=== PATIENT | male | born 1955 | race Caucasian/White ===

== ENCOUNTER 2017-09-08 09:32 | Observation (INO) | payer BC ==
[2017-09-08 10:26] LABS: #Eosinphils 0.3 thou/uL (0.0-0.7); #Lymphocytes 0.9 thou/uL (1.20-3.40); #Monocytes 0.4 thou/uL (0.11-0.59); #Neutrophils 3.9 thou/uL (1.40-6.50); %Basophils 0.5 % (0.0-1.0); %Eosinophils 4.6 % (0.0-10.0); %Lymphocytes 16.7 % (21.0-51.0); %Neutrophils 70.2 % (42.0-75.0); Hemoglobin 13.9 g/dL (14.0-18.0); Mean Corpuscular HGB CONC 33.9 g/dL (32.0-36.0); Mean Corpuscular Hemoglobin 30.3 pg (27.0-31.0); Mean Corpuscular Volume 89.2 fL (78.0-98.0); Mean Platelet Volume 6.4 fL (7.4-10.4); Platelet Count 251 thou/uL (130-400); RBC Distribution Width 12.2 % (11.5-14.5); Red Blood Cell (RBC) Count 4.59 mill/uL (4.70-6.10); White Blood Cell (WBC) Count 5.5 thou/uL (4.8-10.8)
--- NOTE | 2017-09-08 10:35 | RAD ---
PORTABLE CHEST: History: Chest pain, shortness of breath. FINDINGS: Heart size is borderline in size. Mediastinal structures are unremarkable. The lungs are clear of inf iltrates. There are no signs of failure. IMPRESSION: Borderline heart size. POS: [facility]
[2017-09-08 10:51] LABS: ALT (SGPT) 30 U/L (8-55); AST (SGOT) 22 U/L (5-34); Albumin 4.4 g/dL (3.4-4.8); Alkaline Phosphatase 66 U/L (40-150); Anion Gap 9 mmol/L (10-20); BUN (Urea Nitrogen) 10 mg/dL (8.4-25.7); Bilirubin, Total 0.8 mg/dL (0.2-1.2); CK (CPK) 79 U/L (30-200); Calc. Creatinine Clearance 0 mL/min (70-130); Calcium 9.3 mg/dL (7.8-10.44); Carbon Dioxide 28 mmol/L (23-31); Chloride 106 mmol/L (98-107); Estimated GFR-MDRD Greater than 90; Globulin 2.5 g/dL (2.4-3.5); Glucose 100 mg/dL (80-115); Lipase 14 U/L (8-78); Potassium 3.8 mmol/L (3.5-5.1); Protein, Total 6.9 g/dL (5.8-8.1); Sodium 139 mmol/L (136-145)
[2017-09-08 10:55] LABS: CKMB 2.2 ng/mL (0-6.6); Troponin I Less than 0.010 ng/mL (< 0.028)
[2017-09-08] MEDS ORDERED: Sodium Chloride 0.9% 100 ML ONE (15:43)
[2017-09-08] MEDS ORDERED: Acetaminophen 325 MG TAB PO PRN (16:20)
[2017-09-08 17:55] LABS: Troponin I Less than 0.010 ng/mL (< 0.028)
[2017-09-08 18:41] LABS: Free T4 (Free Thyroxine) 1.03 ng/dL (0.70-1.48); Thyroid Stimulating Hormone 2.3426 uIU/mL (0.35-4.94)
[2017-09-08 20:18] LABS: Troponin I Less than 0.010 ng/mL (< 0.028)
[2017-09-08] MEDS ORDERED: Ondansetron HCl/PF 4 MG/2 ML Vial IVP PRN (21:49)
[2017-09-08] MEDS ORDERED: Ondansetron ODT 4 MG TAB SL PRN (21:49)
[2017-09-08] MEDS ORDERED: Sodium Chloride 0.9% 1,000 ML IV SCH (21:49)
[2017-09-08 22:20] VITALS: BMI 29.5
--- NOTE | 2017-09-08 22:28 | HP ---
CHIEF COMPLAINT: Chest pain. HISTORY OF PRESENT ILLNESS: This patient is a 61-year-old male, who reports he has had a history of some chest pain problems over the years. He has seen 3 different cardiologists. Initially, he was a pparently having some PVCs and was evaluated 20 years ago. At that time, he had an ultrasound and wa s told that he had a mitral valve prolapse. Subsequently, he was reevaluated by a second cardiologis t some years later and was specifically told that he did not have a significant mitral valve prolapse issues. In the fall, the patient experienced some further symptoms including some palpitations, and at that time, he presented locally to Dr. Silva. She did a workup on the patient, which he reports w as basically negative. He states that the nurse did call him and tell him that the echo results did show that he had a leaky valve and some enlargement, both of which she felt were largely inconsequent ial. Subsequent to that, the patient was stable for a period of time; 3 months ago, started having m ore symptoms more often. He stated he noticed at work that, when he would walk up a flight of stairs , he would be very short of breath and have some chest discomfort. Over the past week, it became mor e often with less exertion and was particularly bothered when he exerted himself outdoors in the heat at all. Over the last 3 days, it has crescendoed somewhat. States he could not walk outside to his car without getting symptoms, and ultimately, could not even walk around in his own home without hav ing similar symptoms. Last night, the patient had an episode and checked his blood pressure and repo rts it was 150s/90s. He also notes that he has had some ankle edema, which is unusual for him. He s tates that he has been eating quite a lot recently and noted he felt like he had some additional flui d in his abdomen as well. In the last 24 hours, the patient reports that he has been diuresing for s ome reason. He has changed nothing that he is aware of, but voided frequently through the night and throughout the day today. Fairly large amount. On further questioning, the patient reports that he had some aching sensation in his left upper extremity last evening and he also notes that the symptom s seemed to be worse when he is in a hot shower. REVIEW OF SYSTEMS: Notable for a 5-pound weight gain over the past few days, which the patient think s may be attributable to his eating more. He states last night he could not sleep as well, because h is heart felt like it was pounding. He has some right ear hearing deficit, some cough which he relat es to chronic sinus drainage. He does have routine nocturia multiple times, which is longstanding, a nd he also admits to some daytime polyuria recently. Other than those things and the things mentione d in the history of present illness, a 10-system review was negative. PAST MEDICAL HISTORY: Notable for degenerative disk disease of the lumbar spine. Reports he had a s layo fracture in his 20s. He has hypertension and allergic rhinitis. He takes fwrc-jkt-vemvtvs med ications for this, but is fairly certain they do not contain decongestants. He has cataracts and hyp erlipidemia. PAST SURGICAL HISTORY: Notable for lumbar diskectomy and 3-level lumbar fusion. FAMILY HISTORY: The patient was adopted, but has recently found his biological parents. He does not have all the history. He believes his father had cancer. His mother had cancer and states that she had some heart trouble, which he thinks might be "a stroke." SOCIAL HISTORY: The patient is a nonsmoker, nondrinker, nondrug user. He is . His woul d be his surrogate decision maker and he is FULL CODE. ALLERGIES: None. MEDICATIONS: Simvastatin 40 mg every day, quinapril 10 mg every day, aspirin 81 mg daily, omeprazole 40 mg daily. PHYSICAL EXAMINATION: VITAL SIGNS: BP is 120s/80s, pulse 60s. He is afebrile. Respirations are 16. GENERAL APPEARANCE: Age-appropriate male. He is awake, alert, oriented, pleasant, cooperative. He is in no distress. HEENT: PERRL. No OP lesions. NECK: Supple and symmetric without lymphadenopathy. LUNGS: Clear to auscultation bilaterally with no wheezes or rales. HEART: Regular rate and rhythm without murmurs, gallops, or rubs. LUNGS: Clear to auscultation bilaterally with good chest wall expansion, air exchange. ABDOMEN: Soft, nontender, nondistended, positive bowel sounds. No masses, no organomegaly. EXTREMITIES: Warm and dry with 1+ pretibial pitting edema. LABORATORY DATA: White count 5.5, hemoglobin 13.9, platelets 251. D-dimer 0.39. Sodium 139, potass ium 3.8, chloride 106, CO2 is 28, BUN 10, creatinine is 0.75. AST is 22 and ALT is 30. Troponin les s than 0.01 with repeat 0.02. BNP 188.3, lipase 14. Chest x-ray is negative. EKG: Sinus rhythm wi th some PVCs. ASSESSMENT AND PLAN: 1. Chest pain in a patient, who has had a prior workup. He has risk factors including hypertension and hyperlipidemia. He has negative initial troponins and EKG with the exception of frequent PVCs, w hich may be explaining part of his symptomatology. He will be placed in observation on telemetry wit h serial cardiac isoenzymes. We will also check a magnesium level and a TSH with free T4. Giving th e crescendo nature of his symptoms, we will go ahead and ask Dr. Silva to see the patient again as prabhakar reagan. 2. Hypertension. We will continue with his usual home medications including the MILANA inhibitor. 3. Hyperlipidemia. We will continue with his oral dose of simvastatin.
--- NOTE | 2017-09-09 11:06 | PDOC.EVN ---
Event Note - Event Note Event Note: DC SUMMARY #[id number]
--- NOTE | 2017-09-09 11:26 | DIS ---
DATE OF ADMISSION: 09/08/2017 DATE OF DISCHARGE: 09/09/2017 ADMITTING DIAGNOSES: Chest pain, dyspnea on exertion, degenerative disk disease, osteoarthritis, and hypertension. DISCHARGE DIAGNOSES: 1. Chest pain, resolved. 2. Dyspnea on exertion, resolved. 3. History of degenerative disk disease, stable. 4. Hypertension, stable. HOSPITAL COURSE: This is a 61-year-old male, who was admitted with some chest pain and history of palomino ving this issue apparently had a workup done recently with his provider relations specialist, which showed no cardiac evidence of pathology. Patient also had an outpatient stress test done as well. The patient was adm itted to Internal Medicine team, seen by Cardiology during this admission with a nuclear medicine str ess test being done at this point in time. The patient at the point in time of discharge was stable. Denied any nausea, vomiting, diarrhea, constipation, chest pain, fevers, chills, shortness of breat h. Patient was to be discharged. Follow up with PCP and Cardiology within 1-2 weeks. Patient was e ncouraged to also consider discussing possibilities of noncardiac chest pain Pulmonary for example or even GI. DISPOSITION: Home. MEDICATIONS: See MAR. ACTIVITY: As tolerated with assistance as needed. DIET: Low fat, low calorie, high fiber. CONDITION: Stable. PROGNOSIS: Good. FOLLOWUP: With PCP within 1 week, Cardiology within 2-3 weeks. Case and plan discussed with the patient and at length. They understand and agree with this nahun n.
--- NOTE | 2017-09-09 11:41 | NM ---
RADIONUCLIDE STRESS AND REST MYOCARDIAL PERFUSION SCAN WITH CT ATTENUATION CORRECTION AND SPECT IMAGI NG: LEFT VENTRICULAR WALL MOTION EVALUATION AND EJECTION FRACTION: HISTORY: Chest pain. FINDINGS: Jarred protocol used. A test time of 7 minutes and 1 second. There is heterogeneous uptake of radiotracer throughout the left ventricular myocardium. No focal pe rfusion defect or reversibility. QGS analysis of gated SPECT images show no focal wall motion abnorm alities. LHR is 49%. Left ventricular ejection fraction is calculated at 56%. There is some dyskin esis apparent, primarily involving the anterior and lateral wall. IMPRESSION: 1. Probably normal myocardial perfusion scan, showing no reliable evidence of ischemia. 2. Ejection fraction at lower limits of normal with some dyskinetic movement of the anterior and lat eral wall. Cause is not evident. POS: [facility]
[2017-09-09 12:05] VITALS: TEMP 98.3
[2017-09-09 15:37] VITALS: BP 132/77
--- NOTE | 2017-09-09 18:22 | CON ---
DATE OF CONSULTATION: 09/09/2017 CARDIOLOGY CONSULTATION PRIMARY CARE PHYSICIAN: Yolande Zepeda M.D. PRIMARY FERMENTATION SCIENTIST: Cassidy Silva M.D. REFERRING: Jagdish Chavez D.O. REASON FOR CARDIOLOGY CONSULTATION: Chest pain and palpitations. HISTORY OF PRESENT ILLNESS: Mr. Mars is a 61-year-old male with a significant history Lrkco-Ifyjitotw-Ascph symptom with status post ablation in 1997, hypertension and hyperlipidemia and palpitations. The patient has the problem of the palpitation for quite some time, more than 20 years. He saw total of 3 cardiologists and every exam he had showed normal per the patient. He was diagnosed as mitral valve prolapse around the age of 40 and the patient' s CT cardiogram showed normal. The patient had a stress test last year at [facility] ' office which showed normal. The patient's echocardiogram in 12/2016 shows EF of 50-55 and no mitral valve prolapse showed. The patient had a 48 hour event monitor in 02/2017 showed frequent PVCs, but no other arrhythmia or pulses. Since the test, he did not have any chest pain or palpitation; however, he started having heaviness and burning-like sensation to his mediastinal area around 3 months ago, which happens usually in the afternoon. Moreover, around a few weeks ago, he started having more heaviness and burning sensation all day , several times a day with increase in his fatigue when he walks. However, he did not have any shortness of breath, chest pain, heaviness or numbness in the left upper extremities or any other cardiac complaints even if he walks more than 1 mile. Since last week, he started having more frequent of those symptoms with palpitation in his chest. In the morning of 09/08, he has worsening of those symptoms, so he decided to present to the emergency department for the further evaluation and treatment. He already had a [place], treadmill stress test today, which shows probable normal myocardial perfusion with no evidence of ischemia with ejection fraction of 56%. During the treadmill part, the patient walked more than he usually does, he also has palpitation; however, EKG did not show any abnormal rhythm. 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 He walks more than 2 or 3 miles and take stairs to inspect the building. That time, he does not have those symptoms much, however, he does not take much fluid intake during the work time and also he takes antihistamine almost every day for sinus and he stated that his sinus is getting worse lately and he is taking more of the antihistamine medicine more often than before. Since he is admitted at this hospital since yesterday, he did not have any palpitation or heaviness or burning-like sensation in his mediastinal area, shortness of breath, dizziness, lightheadedness, nausea, vomiting or numbness to the left upper extremity or other cardiac complaints. The patient had a stress test today, which is showing probable normal myocardial function test with no evidence of ischemia and the patient had echocardiogram done in 12/2016, which shows EF of 50%-55%, mild LAD, LAE, mild mitral valve regurgitation, mild tricuspid regurgitation and no mitral valve prolapse. The patient had 48 hours event monitor on in 02/2017 for history of palpitation, which shows frequent PVCs, but no arrhythmia at the pauses. PAST MEDICAL HISTORY: 1. Oudtg-Eputnkxpa-Gjehk syndrome with status post ablation in 1997. EKG on the equipment monitor phototypesetting had shown sinus rhythm with frequent PVCs. 2. Hypertension. 3. Hyperlipidemia. 4. GERD. 5. Cataracts without surgery at this moment. PAST SURGICAL HISTORY: 1. Lumbar and thoracic spinal fusion. 2. Septoplasty. 3. Cholecystectomy. 4. Hernia repair. FAMILY HISTORY: He was adopted, but his biological mother has a history of some kind of heart disease, stroke and ovary and breast cancer. SOCIAL HISTORY: The patient lives with his . They have 4 children. First son had a history of murmur as the baby, but resolved while he is grown up. Other 3 children did not have any problem and they live healthy and live well. He denies tobacco, ETOH or illicit drug abuse; however, he had grown up in a house like he has history of secondhand smoking. He used to drink coffee every day, however, he no longer having the caffeine for more than 1-2 years. ALLERGIES: He is allergic to CODEINE, which makes him nauseated. HOME MEDICATIONS: Quinapril 10 mg once a day, simvastatin 40 mg once a day, omeprazole 40 mg once a day and some kind of antihistamine over the counter almost every day. REVIEW OF SYSTEMS: Negative unless mentioned in the HPI. The patient reports patient being active and he denies any shortness of breath, hematuria or blood in the stool or any deformity in the lower extremities. PHYSICAL EXAMINATION: VITAL SIGNS: Blood pressure 132/74, pulse is 63 with sinus rhythm with frequent PVCs, respiratory 18, O2 saturation 97% with room air, temperature 98.3. GENERAL: Well developed and well nourished without any acute distress. HEAD: Normocephalic, atraumatic. EYES: Extraocular muscle movement intact. Wears glasses for reading. ENT AND MOUTH: Oral and nasal mucosa was moist without lesion. NECK: Supple and normal range of motion. LUNGS: Clear to auscultation bilaterally. No wheezing, rales or rhonchi noted. CARDIOVASCULAR: Regular rate and rhythm. No murmur, hives, rub noted. Carotid pulses are present without thrill or bruit noted. There are 2+ pulses in the bilateral lower extremities. No edema noted. ABDOMEN: Soft and nontender or mass to palpate. Bowel sounds are positive. EXTREMITIES: The patient is able to move all extremities. No occult claudication. SKIN: No bruise, lesion or erythema noted. NEUROLOGIC: The patient is alert and oriented x4, nonfocal. LABORATORY DATA: WBC 5.5, hemoglobin 13.9, hematocrit 40.2, platelet 251,000. D-dimer 0.39. Sodium 139, potassium 3.8, BUN 10, creatinine 0.75, calcium 9.3, magnesium 2.1, AST 22, ALT 30, CK-MB 2.2. Troponin less than 0.010 and 0.020. BNP is 188.3, free T4 1.03, TSH 2.3426. The patient's chest x-ray shows borderline heart size. Other than that, no abnormalities. The patient's stress test shows probable normal myocardial perfusion with no evidence of ischemia. ASSESSMENT AND PLAN: 1. Palpitation. The patient's telemetry record and 12-lead EKG at the ER shows the patient having frequent premature ventricular contractions without any other abnormalities at this moment. The patient's event monitor recording in 02/2017 shows frequent premature ventricular contractions with no pauses arrhythmia. The patient's symptoms may be due to the dehydration or frequent intake of the antihistamine. The patient has similar symptoms during the [place], treadmill stress test; however, the EKG during the test did not show any abnormalities. We like to order event monitor for 5 days, which is going to be sent from Dr. Silva' office to monitor his heart ____. Other than that, we like to continue to monitor. 2. History of Gcurp-Zgulrtdzk-Ffbfq syndrome. The patient's equipment monitor phototypesetting shows any symptom of the [place]-Pygjojqeg-Dqctr syndrome at this moment. We would like to continue to monitor on the telemetry. 3. Hypertension. The patient's blood pressure has been stable with current medication. 4. Hyperlipidemia. He is on simvastatin 40 mg once a day. We would like to resume the medication once he is discharged. 5. History of mitral valve prolapse, which the patient was diagnosed at the age of 40. However, last EKG in 12/2016 shows no evidence of mitral valve prolapse. We would like to continue to monitor with serial echocardiograms. Thank you for allowing the Cardiology service to participate in the care of this patient. We would like to follow along with ____ patient care team and make recommendation as appropriate. PURA
--- NOTE | 2017-09-10 07:46 | ADD-CON ---
ADDENDUM DATE OF CONSULTATION: 09/09/2017 DATE OF ADMISSION: 09/08/2017 CARDIOLOGY CONSULT Please refer to the notes already dictated by the nurse practitioner, Richa La. INDICATION FOR CONSULTATION: Increasing palpitations. HISTORY OF PRESENT ILLNESS: This 61-year-old gentleman I followed for just recently. He has been no ticing palpitation on the third termination clerk, he was seen regarding this. He has had workups in the past. He was recently told he had mitral valve prolapse. The last seen termination clerk including papito greenwood and told there is no evidence of mitral valve prolapse. He continued to have PVCs, as notice incre ased frequency of the PVCs especially in this hot weather. He may not be drinking fluids when he is out performing this task in the heat. Otherwise, he has had no significant cardiac issues in the pas t except for the palpitations. He has undergone a stress testing which was unremarkable. Echocardio gram, which also unremarkable. He continues to have the palpitations. At this time, he complained o f some chest discomfort. He underwent stress testing, which showed no evidence of reversible ischemi a. Ejection fraction remains stable. At this time, he could be discharged to home with followup as an outpatient in the office. He appears to be safe from a cardiac standpoint at this time, but he do es have PVCs. I would continue his beta blockers. As far as his review of systems, past medical history, social history, family history, medications, a llergies, please refer the notes dictated by the nurse practitioner. PHYSICAL EXAMINATION: GENERAL: Reveals a well-developed, well-nourished gentleman who is in no acute distress. He is aler t and oriented x3. VITAL SIGNS: Stable. HEENT: Shows head to be normocephalic and atraumatic. Carotid pulses are present. There were no br uits. There is no JVD. The thyroid was not enlarged. Oral mucosa was pink and moist. CHEST: Clear to auscultation without rales, rhonchi, or wheezing. CARDIOVASCULAR: Exam reveals a regular rate and rhythm with occasional ectopy. He has a normal S1, S2. There was no S3, S4. There were no significant murmurs, heaves, thrills, bruits, or rubs noted. ABDOMEN: Soft and nontender with positive bowel sounds. No organomegaly or masses were noted. Femo ral pulses are present. EXTREMITIES: Showed no clubbing, cyanosis or edema. NEUROLOGIC: The patient appears to be fully intact. SKIN: Warm and dry. EKG shows a normal sinus rhythm with no acute changes. Stress test was unremarkable for any acute ev idence of ischemia. He was felt to be some dyskinesis of the anterior wall, which most likely was du e to palpitations during the evaluation. Otherwise, there were no significant abnormalities noted on the stress test. His laboratory data does not show any evidence of infarctions, otherwise laborator y data remained normal. IMPRESSION: 1. Palpitations, most likely he feels that there are premature atrial contractions and premature capo tricular contractions, which most likely are benign. We will continue the beta-blockers. 2. History of hyperlipidemia. He is on chronic Pharmacological therapy. He is tolerating lipid low ering therapy well and I would continue his present medications. 3. History of mitral valve prolapse, which we cannot support by echocardiogram at this time. 4. Hypertension. This is under good control at this time. [facility]
--- NOTE | 2017-09-10 14:15 | STRESS ---
Acquisition Time: 2017-09-09 09:15:01 Total Exercise Time: 00:07:01 Test Indications: CHEST PAIN Medications: Protocol: CARLOS MANUEL Max HR: 141 BPM 88% of Pred: 159 BPM Max BP: 174/086 mmHG Max Work Load: 10.1 METS RESTING ECG: NORMAL SINUS RHYTHM AT 73 BPM WITH RARE PVC'S SYMPTOMS: 6/10 CHEST PRESSURE AT PEAK EXERTION NORMAL BP RESPONSE ECTOPY: OCCASIONAL TO FREQUENT PVC'S (COUPLETS AT PEAK EXERTION) ECG STRESS: NO SIGNIFICANT CHANGES INTERPRETATION: NEGATIVE GXT/AWAIT NUCLEAR IMAGES FOR DEFINITIVE DIAGNOSIS Confirmed by LOLA GODOY ([id number]) on 09/10/2017 2:14:51 PM Referred By: MD Festus SPIVEY Confirmed By:LOLA GODOY
== END 2017-09-09 16:16 | disposition home or self-care (01) ==
LOC: ERS 09:32 → ERHOLD 13:47 → 2SW 22:06
PROVIDERS: ADMIT Internal Medicine; ATTEND Internal Medicine
DX: R07.9 Chest pain, unspecified (principal); R06.00 Dyspnea, unspecified; I10 Essential (primary) hypertension; E78.5 Hyperlipidemia, unspecified; M19.90 Unspecified osteoarthritis, unspecified site; K21.9 Gastro-esophageal reflux disease without esophagitis; Z88.5 Allergy status to narcotic agent; Z79.82 Long term (current) use of aspirin; Z79.899 Other long term (current) drug therapy
CPT/HCPCS: 36415; 71045; 78452; 80053; 82550; 82553; 83690; 83735; 83880; 84439; 84443; 84484; 85025; 85379; 93005; 93017; A9500; G0378; J7050

== ENCOUNTER 2018-10-01 15:28 | Outpatient (CLI) | payer BC | END 2018-10-01 15:29 | disposition home or self-care (01) | LOC: CTENTCT 15:28 | PROVIDERS: ATTEND Otolaryngology Plastic Surgery within the Head & Neck | DX: J32.9 Chronic sinusitis, unspecified (principal) | CPT/HCPCS: 70486 ==

== ENCOUNTER 2018-11-16 12:27 | Observation (INO) | payer BC ==
[2018-11-16 13:07] LABS: #Eosinphils 0.3 thou/uL (0.0-0.7); #Lymphocytes 0.9 thou/uL (1.20-3.40); #Monocytes 0.4 thou/uL (0.11-0.59); #Neutrophils 4.6 thou/uL (1.40-6.50); %Basophils 0.3 % (0.0-1.0); %Eosinophils 4.4 % (0.0-10.0); %Lymphocytes 14.9 % (21.0-51.0); %Neutrophils 73.5 % (42.0-75.0); Hemoglobin 15.9 g/dL (14.0-18.0); Mean Corpuscular HGB CONC 34.3 g/dL (32.0-36.0); Mean Corpuscular Volume 90.2 fL (78.0-98.0); Mean Platelet Volume 6.5 fL (7.4-10.4); Platelet Count 239 thou/uL (130-400); RBC Distribution Width 12.3 % (11.5-14.5); Red Blood Cell (RBC) Count 5.15 mill/uL (4.70-6.10); White Blood Cell (WBC) Count 6.3 thou/uL (4.8-10.8)
[2018-11-16 13:24] LABS: ALT (SGPT) 45 U/L (8-55); AST (SGOT) 31 U/L (5-34); Albumin 4.6 g/dL (3.4-4.8); Alkaline Phosphatase 57 U/L (40-110); Anion Gap 13 mmol/L (10-20); BUN (Urea Nitrogen) 22 mg/dL (8.4-25.7); Bilirubin, Total 1.2 mg/dL (0.2-1.2); CK (CPK) 48 U/L (30-200); Calc. Creatinine Clearance 0 mL/min (70-130); Calcium 9.2 mg/dL (7.8-10.44); Carbon Dioxide 25 mmol/L (23-31); Chloride 104 mmol/L (98-107); Estimated GFR-MDRD Greater than 90; Globulin 2.9 g/dL (2.4-3.5); Glucose 115 mg/dL (80-115); Lipase 17 U/L (8-78); Potassium 4.1 mmol/L (3.5-5.1); Protein, Total 7.5 g/dL (5.8-8.1); Sodium 138 mmol/L (136-145)
[2018-11-16] MEDS ORDERED: Aspirin Chewable 81 MG TAB ONE (13:35)
[2018-11-16] MEDS ORDERED: Nitroglycerin 2% Ointment 1 INCH/1 GM Packet ONE (13:35)
[2018-11-16] MEDS ORDERED: ISOVUE-370 76%-LOCM 1 ML ONE (13:46)
--- NOTE | 2018-11-16 13:47 | RAD ---
PORTABLE CHEST 1 VIEW: Date: 11/16/18 Time: 1237 hours HISTORY: Chest pain. FINDINGS: Comparison made with exam of 09/08/17. Heart size is stable. No focal areas of consolidation, pneumothoraces, or pleural effusions are seen. There is no evidence of guadalupe pulmonary edema. IMPRESSION: No acute process. POS: [facility]
--- NOTE | 2018-11-16 14:14 | CT ---
CT arteriogram chest with IV contrast and 3-D imaging HISTORY: Chest pain. Dyspnea. FINDINGS: There is good contrast opacification pulmonary arteries and thoracic aorta with normal bran dawood of the great vessels. Mild dependent bibasilar atelectasis. Dystrophic calcification of the breasts and axillary lymph nodes. No pleural fluid or mediastinal adenopathy. IMPRESSION: No CT evidence of pulmonary embolus.
[2018-11-16 17:06] LABS: Troponin I Less than 0.010 ng/mL (< 0.028)
[2018-11-16 17:40] VITALS: BMI 31.1
[2018-11-16] MEDS ORDERED: Acetaminophen 325 MG TAB PO PRN (17:44)
[2018-11-16 18:46] LABS: Cardiac Risk 3.5 (Less than 4.5)
[2018-11-16] MEDS ORDERED: Ondansetron ODT 4 MG TAB PO PRN (18:55)
[2018-11-16] MEDS ORDERED: Acetaminophen 650 MG Suppository PR PRN (18:55)
[2018-11-16] MEDS ORDERED: Ondansetron PF 4 MG/2 ML Vial IVP PRN (18:55)
[2018-11-16 19:13] LABS: Troponin I Less than 0.010 ng/mL (< 0.028)
[2018-11-16 20:07] VITALS: TEMP 97.9
--- NOTE | 2018-11-16 20:14 | HP ---
PRIMARY CARE PHYSICIAN: Dr. Jenifer Vasquez. CHIEF COMPLAINT: Chest tightness. HISTORY OF PRESENT ILLNESS: Mr. Mars is a pleasant 62-year-old gentleman, who states he was in his usual state of health when he woke up this morning; however, shortly after arriving at work, began to feel a tightness in his lower neck along the collarbone bilaterally. The patient states he spent a lot of time in the heat yesterday and thought he may have been attributed to that as he had some similar aches a week prior after working again. He states he attempted to carry on work this morning; however, began to experience palpitations and lightheadedness. His symptoms remain intermittent. He reports looking in the mirror and seeing distention of the vessels on the right side of his neck. He states he was slightly diaphoretic. Denies having any chest pain, but does describe a tightness in the center of his chest, particularly noticeable when he would take a deep breath. He contacted Dr. Silva' office and was advised to come to the emergency department. On arrival, he underwent an EKG, which showed normal sinus rhythm with a heart rate of 79 and frequent PVCs. No ST changes or T-wave abnormalities present. He was given 324 mg of aspirin and Nitro-Bid. He was also given 500 mL of fluids. The patient had laboratory studies, which were unremarkable with the rest of the full blood count and CMP. Initial troponin was negative. CK was 48 and BNP was 45.2. Lipase was also normal. A D-dimer was done, which was elevated, prompting a CT angiogram of the chest, which showed no evidence of PE. There was mild dependent bibasilar atelectasis present. Dystrophic calcification of the breast and axillary lymph nodes. No pleural fluid or mediastinal adenopathy. A chest x-ray was done as well showing no acute process. Consultation was placed to Dr. Silva and he has been admitted for further monitoring and investigation. The patient states he has had a normal stress test in the past, but when taken for catheterization, he was noted to have a " maker," therefore stents were placed. For this reason, he was seemed to be at high risk and requiring Cardiology consultation. PAST MEDICAL HISTORY: 1. Coronary artery disease. 2. Hyperlipidemia. 3. Hypertension. 4. Mitral valve prolapse. PAST SURGICAL HISTORY: 1. Cardiac stents x2. 2. Spinal surgery (cervical and lumbar). SOCIAL HISTORY: The patient denies any smoking, tobacco use, or alcohol consumption. He is fully independent. FAMILY HISTORY: Maternal side has a strong history of cardiac disease. ALLERGIES: NO KNOWN DRUG ALLERGIES. CURRENT MEDICATIONS: 1. Omeprazole 40 mg p.o. daily. 2. Simvastatin 40 mg p.o. daily. 3. Quinapril 10 mg p.o. daily. 4. Aspirin 81 mg p.o. daily. 5. Plavix 75 mg p.o. daily. PHYSICAL EXAMINATION: GENERAL: The patient appears well developed, well nourished, is in no acute distress. VITAL SIGNS: Temperature 98.1, pulse 65, respirations 17, O2 saturation 98% on room air, blood pressure 126/77. HEENT: Normocephalic and atraumatic. Pupils are equal, round, and reactive to light. Sclerae icterus. Oropharynx is clear. NECK: Supple without lymphadenopathy. No tenderness to touch along the collarbone. He does have some slight discomfort when turning his head to the left, but full range of motion. LUNGS: Clear to auscultation bilaterally with reduced breath sounds at the bilateral bases. No rales or rhonchi. CARDIAC: Regular rate and rhythm. ABDOMEN: Soft, nontender, nondistended. Normoactive bowel sounds present. EXTREMITIES: No lower leg swelling or edema. Peripheral pulses strong and equal bilaterally. SKIN: Without rash or jaundice. NEUROLOGIC: Alert and oriented x3. No neuro deficits on exam. INVESTIGATIONS: As mentioned above in HPI. IMPRESSION AND PLAN: Mr. Mars is a very pleasant 62-year-old gentleman, who is being admitted for management of the following. 1. Acute coronary syndrome rule out. The patient states he is completely asymptomatic at present. Given his cardiac history and strong family history as well as having a normal stress test in the past with subsequent catheterization done to find he had near-complete blockage and requiring two stents. Consult has been placed with Dr. Silva of Cardiology. We will continue to trend troponins. He has been treated with aspirin. We will resume his home medications including Plavix. The patient will be n.p.o. after midnight. 2. Hypertension. We will monitor blood pressure and resume home medications. 3. Hyperlipidemia. We will resume home medication. 4. Gastrointestinal prophylaxis with famotidine. 5. Deep venous thrombosis prophylaxis with mechanical SCDs. 6. Code status: Full. His surrogate decision maker is his , Екатерина Mars. The patient's case discussed with attending, who agrees with plan of care as described above. Job ID: [id number]
[2018-11-16] MEDS ORDERED: Non-Formulary Item 1 EACH (Omeprazole [Omeprazole] 40 MG) PO SCH (21:00)
[2018-11-16] MEDS ORDERED: Famotidine/PF 20 mg/2ml Vial SLOW IVP SCH (21:00)
[2018-11-17 06:15] LABS: #Eosinphils 0.4 thou/uL (0.0-0.7); #Lymphocytes 0.8 thou/uL (1.20-3.40); #Monocytes 0.5 thou/uL (0.11-0.59); #Neutrophils 4.1 thou/uL (1.40-6.50); %Basophils 0.8 % (0.0-1.0); %Eosinophils 6.3 % (0.0-10.0); %Lymphocytes 14.5 % (21.0-51.0); %Monocytes 8.4 % (0.0-10.0); %Neutrophils 70.1 % (42.0-75.0); Hemoglobin 14.2 g/dL (14.0-18.0); Mean Corpuscular Hemoglobin 31.8 pg (27.0-31.0); Mean Corpuscular Volume 90.8 fL (78.0-98.0); Mean Platelet Volume 6.6 fL (7.4-10.4); Platelet Count 216 thou/uL (130-400); RBC Distribution Width 12.3 % (11.5-14.5); Red Blood Cell (RBC) Count 4.47 mill/uL (4.70-6.10); White Blood Cell (WBC) Count 5.8 thou/uL (4.8-10.8)
[2018-11-17 06:32] LABS: Anion Gap 10 mmol/L (10-20); BUN (Urea Nitrogen) 18 mg/dL (8.4-25.7); Calc. Creatinine Clearance 128 mL/min (70-130); Calcium 8.3 mg/dL (7.8-10.44); Carbon Dioxide 24 mmol/L (23-31); Chloride 108 mmol/L (98-107); Estimated GFR-MDRD Greater than 90; Glucose 90 mg/dL (80-115); Sodium 138 mmol/L (136-145)
[2018-11-17] MEDS ORDERED: QUINAPRIL HCL 10 MG PO SCH (09:00)
[2018-11-17] MEDS ORDERED: Aspirin 325 MG TAB PO SCH (09:00)
[2018-11-17] MEDS ORDERED: Simvastatin 40 MG TAB PO SCH (09:00)
[2018-11-17] MEDS ORDERED: Atorvastatin Calcium 20 MG TAB PO SCH (09:00)
[2018-11-17] MEDS ORDERED: Clopidogrel Bisulfate 75 MG TAB PO SCH (09:00)
[2018-11-17] MEDS ORDERED: Lisinopril 10 MG TAB PO SCH (09:00)
[2018-11-17] MEDS ORDERED: Sodium Chloride 0.9% 500 ML IV SCH (10:00)
[2018-11-17 11:56] VITALS: BP 129/76
--- NOTE | 2018-11-17 16:11 | CON ---
DATE OF CONSULTATION: PRIMARY CARE DOCTOR: Yolande Zepeda MD PRIMARY BOILER CONTROL TECHNICIAN: Cassidy Silva MD REFERRING PHYSICIAN: Tatyana Scott. REASON FOR CARDIOLOGY CONSULT: Status post stent placement and chest pain. HISTORY OF PRESENT ILLNESS: Mr. Mars is a 62-year-old male with a significant history of coronary artery disease with status post stent placement x2 in September and November 2017, hypertension, hyperlipidemia, and mitral valve prolapse. The patient started having mild tightness in the mediastinal area about 2 or 3 weeks ago. Couple of days after, the patient worked outside for long period of time. That symptom become worse when he take a deep breath. He also walk outside for long period of time on last Friday and Friday. Friday morning, he had a mildly severe tightness discomfort in his midsternal area on Friday. However, that symptom start radiating to the neck area. Also, the patient noticed his right carotid vein or the vessel was bulging out. He started having the lightheadedness and also, he feels like he has started having confused and as like the patient's co-worker has noticed also. Due to those symptoms, the patient decided to present to Emergency Department for further evaluation and treatment. Once he drove from the work site, which is the [place] [employer] and to the Emergency Department. During that time, he did not have any confusion or lightheadedness per the patient. At the ER, the patient continued to have a tightness in the mediastinal area. However, the patient denied any lightheadedness, shortness of breath, chest pain, or any other cardiac complaints. Last night around 11 p.m., the patient has had an intermittent fluttering for a few minutes for 30 minutes. However, telemetry recorded did not show any PVC or PAC or any other cardiac arrhythmia during that time. During the initial Cardiology consult assessment, the patient denied any tightness, shortness of breath, dizziness, lightheadedness, pressure to the neck, or any other cardiac complaints. The patient has underwent cardiac catheterization in September of 2017 with PTCA with bare-metal stent to RCA. Also, the patient was found to have a 70% stenosis in the proximal OM2 and 7% in the proximal and mid LAD. In November 2017, the patient underwent another cardiac catheterization with a drug-eluted stent placement x2 in the proximal to the mid LAD. The patient had echocardiogram done in December 2016 with EF 60%, grade 1 diastolic dysfunction, mild to moderate mitral valve regurgitation. No MVP. Mild tricuspid regurgitation and mild AV sclerosis. PAST MEDICAL HISTORY: The patient's medical history; coronary artery disease, hypertension, hyperlipidemia, GERD, and history of MVP PAST SURGICAL HISTORY: The patient's surgical history; septoplasty, spinal fusion, lumbar fusion, steroid injection to the back, cholecystectomy, hernia repair, and several cardiac catheterization. ALLERGIES: HE HAS NO KNOWN DRUG ALLERGIES. HOME MEDICATION: 1. Aspirin 81 mg once a day. 2. Zocor 40 mg once a day. 3. Quinapril 10 mg once a day. 4. Omeprazole 40 mg once a day. 5. Plavix 75 mg once a day. FAMILY HISTORY: The patient's mother had a history of hypertension, heart disease, and TIA and the patient's father had a history of some kind of heart disease. SOCIAL HISTORY: He is . He has walked full-time at this moment. He has four children. His first son had a history of murmur when he was born, but dissolve when he grown up. He denied EtOH, tobacco, or illicit drug abuse. However, his both parents smoke, so he grown up as a secondhand smoke until 18 years old. REVIEW OF SYSTEMS: A 12-point review of systems negative unless otherwise mentioned in the HPI. PHYSICAL EXAMINATION: VITAL SIGNS: Blood pressure 129/76, temperature 97.5, pulse is 58 and sinus rhythm, respiratory rate 16, and O2 saturation 96% on room air. GENERAL: The patient is alert and oriented x4, not in acute distress. HEENT: Normocephalic and atraumatic. Eyes, extraocular muscle movement intact. He wears glasses. ENT and mouth, oral and nasal mucosa moist without lesion. NECK: Supple. Normal range of motion. No JVD. RESPIRATORY: Clear to auscultate bilaterally. No wheezing, rales, or rhonchi noted. CARDIOVASCULAR: Regular rate and rhythm. Normal S1 and S2. No S3 or S4. No significant murmur, hives, or thrill noted. 2+ pulses in the bilateral lower extremities. No edema in the lower extremities. Carotid pulses are present without bruits or thrill. ABDOMEN: Soft and nontender. No mass to palpitate. Bowel sounds are present. SKIN: Warm and dry. No erythema, rash, or lesion noticed. MUSCULOSKELETAL: The patient able to move all extremities. The patient denied claudication. NEUROLOGIC: The patient is alert and oriented x4, nonfocal. PSYCHIATRIC: The patient's mood is appropriate. LABORATORY DATA: WBC 5.8, hemoglobin 14.2, hematocrit 40.5, and platelets 216. D-dimer 0.56. The patient's CT chest showed no pulmonary embolism. Sodium 138, potassium 4.0, BUN 18, creatinine 0.74, AST 31, and ALT 45. Troponin negative x3, BNP 45, and CK is 48. Cholesterol 130, triglyceride 130, HDL 37, and LDL 67. Hemoglobin A1c is 5.3. Chest x-ray shows no acute process. A 12-lead EKG shows normal sinus rhythm with no ST-segment change or T-wave inversion. ASSESSMENT AND PLAN: 1. Chest tightness. The patient complained of chest tightness at the mediastinal area. He describes the symptom as like continuously getting worse with a deep breath. He denies any pain with palpation at that site. At this moment, the patient denied any tightness in the chest or any other cardiac complaints. He denied any lightheadedness or confusion or any other cardiac complaints at this moment. He has been on aspirin, simvastatin, clopidogrel, and angiotensin-converting enzyme inhibitor this moment. The patient's symptom no cardiac related etiology. We would like to continue to monitor on telemetry. We would like to discuss with Dr. Silva with the patient's condition. 2. Hypertension. The patient's blood pressure is stable with current medication. 3. Hyperlipidemia. The patient is on statin. 4. History of coronary artery disease. The patient has been on aspirin, statin, and Plavix. He is on the beta hamilton since his pulse is on low side. Thank you very much for Cardiology Service to participate in the care of this patient. We will follow along the patient's care team and make further recommendations as appropriate. Job ID: [id number]
--- NOTE | 2018-11-17 17:22 | EKG ---
Test Reason : Blood Pressure : / mmHG Vent. Rate : 079 BPM Atrial Rate : 079 BPM P-R Int : 186 ms QRS Dur : 104 ms QT Int : 402 ms P-R-T Axes : 032 -11 007 degrees QTc Int : 460 ms Sinus rhythm with frequent Premature ventricular complexes Otherwise normal ECG Confirmed by NITA EDWARD, HIRAM ([id number]), publishing editor BARB DAVE ([id number]) on 11/17/2018 5:22:32 PM Referred By: Confirmed By:HIRAM MOYA MD
--- NOTE | 2018-11-17 19:12 | CON ---
DATE OF CONSULTATION: 11/17/2018 INDICATION FOR CONSULTATION: A 62-year-old patient with some atypical type chest pains, palpitations history of coronary artery disease, status post angioplasty and stent placement. He has undergone angioplasty and stent placement to the left anterior descending artery and also to the right coronary artery earlier this year. He has been at work with somewhat stressful situation and noticed that he was having some palpitations and also had some kind of discomfort in his neck. He thought he had some bulging in neck veins and felt some palpitations and pulsations, and then felt a little bit unusual, where he had been out also recently in the heat and felt he was kind of weak, but at this time was not having any significant stressful situations. He was seen in the emergency room and then admitted, and has had no significant other abnormalities. His cardiac enzymes are negative. His EKG does not show any acute changes. He does have occasional PVCs, but otherwise is relatively unremarkable. Blood pressure has been slightly elevated, but at home appears to be under very good control. He has not had any changes in his other medications. He does have a history of mitral valve prolapse, which maybe causing some palpitations also as well as his history of coronary artery disease, hypertension, and dyslipidemia. PAST MEDICAL HISTORY: Please refer to the notes dictated by the nurse practitioner. SOCIAL HISTORY: Please refer to the notes dictated by the nurse practitioner. FAMILY HISTORY: Please refer to the notes dictated by the nurse practitioner. REVIEW OF SYSTEMS: Please refer to the notes dictated by the nurse practitioner. ALLERGIES: PLEASE REFER TO THE NOTES DICTATED BY THE NURSE PRACTITIONER. PHYSICAL EXAMINATION: GENERAL: Reveals a well-developed, well-nourished gentleman, in no acute distress at this time. He is alert. He is oriented. VITAL SIGNS: Stable. Blood pressure 129/76, heart rate is in the 50s and 60s, it shows a sinus rhythm. He is afebrile. HEENT: Shows the head to be normocephalic and atraumatic. NECK: Carotid pulses are present. There are no bruits. CHEST: Clear to auscultation without rales, rhonchi, or wheezing. CARDIOVASCULAR: At this time, reveals a regular rate and rhythm with a normal S1 and S2. No S3 or S4. There are no significant murmurs, heaves, thrills, bruits, or rubs. ABDOMEN: Soft and nontender. Positive bowel sounds are present. EXTREMITIES: Showed no clubbing, cyanosis, or edema. NEUROLOGICAL: The patient is fully intact. IMPRESSION: A 62-year-old patient with some atypical type discomfort, which he says is actually worse with inspiration, does not necessarily occur with exertion. He has been out cutting his grass recently without any significant problems, but mainly appears to be associated with stressful situations perhaps at work, and also while he was sitting, he noticed a discomfort with deep inspiration, but otherwise the enzymes are negative and EKG is also unremarkable. At this time, most likely he is a reasonable candidate to be discharged to home. We will see him back in the office in next couple of weeks to see how he is doing. If he continues to have some palpitations, then we could apply the event monitor, but here he was only having very rare PVCs and no other significant abnormalities. As far as his other medical management, this will be dealt with by the primary care service for the hypertension as well as his dyslipidemia. We will be more than happy to continue to follow this patient. We will see him in the office in the next couple of weeks. Job ID: [id number]
[2018-11-17] MEDS ORDERED: Aspirin 81 mg Enteric Coated Tablet PO SCH (21:00)
--- NOTE | 2018-11-18 01:33 | DIS ---
DATE OF ADMISSION: 11/16/2018 DATE OF DISCHARGE: 11/17/2018 DISCHARGE DISPOSITION: Home. FOLLOWUP: 1. Follow up with Dr. Jenifer Vasquez, primary care physician in 1 week. 2. Follow up with Dr. Silva in 2 to 3 weeks. ALLERGIES: NO KNOWN DRUG ALLERGIES. INPATIENT MANAGER OF CUSTOMER BILLING: Cardiology, Dr. Silva. DIAGNOSTIC TESTS: 1. Chest x-ray on admission was negative for infiltrate or edema. 2. CT angiogram of the chest was negative for pulmonary embolism. 3. Troponins were normal. 4. BNP 45.2. 5. Lipid profile showed triglyceride 130, cholesterol 130, LDL 67, HDL 37. 6. BUN 18, creatinine 0.74. The patient was seen and examined on the day of discharge. Denies any new complaints. No chest pain, shortness of breath, palpitations reported. BRIEF HOSPITAL COURSE: The patient is a 62-year-old male with coronary artery disease status post stent placement, hypertension, hyperlipidemia, and mitral valve prolapse, presented to the hospital with chest discomfort. Please refer to the history and physical for further details. The patient was admitted to the hospital with a diagnosis of chest discomfort, rule out acute coronary syndrome. Serial troponins remained negative. He had abnormal D-dimer; however, CT angiogram of the chest was negative. Aspirin and Plavix were continued. He has been cleared by Cardiology for discharge. FINAL DIAGNOSES: 1. Chest discomfort, acute coronary syndrome ruled out. 2. Hypertension. 3. Hyperlipidemia. 4. Coronary artery disease, status post stent placement. 5. Obesity with a BMI of 31.2. 6. Family history of heart disease. 7. History of mitral valve prolapse. PLAN: Plan of care was discussed with the patient in detail. He stated understanding. Job ID: [id number]
== END 2018-11-17 15:03 | disposition home or self-care (01) ==
LOC: ERS 12:27 → 2SW 17:03
PROVIDERS: ADMIT Family Medicine; ATTEND Family Medicine
DX: R07.89 Other chest pain (principal); I10 Essential (primary) hypertension; E78.5 Hyperlipidemia, unspecified; I25.10 Atherosclerotic heart disease of native coronary artery without angina pectoris; I34.1 Nonrheumatic mitral (valve) prolapse; E66.9 Obesity, unspecified; Z68.31 Body mass index [BMI] 31.0-31.9, adult; Z82.49 Family history of ischemic heart disease and other diseases of the circulatory system; Z79.02 Long term (current) use of antithrombotics/antiplatelets; Z79.82 Long term (current) use of aspirin; Z79.899 Other long term (current) drug therapy; Z95.5 Presence of coronary angioplasty implant and graft; Z98.1 Arthrodesis status
CPT/HCPCS: 36415; 71045; 71275; 80048; 80053; 80061; 82550; 83690; 83880; 84484; 85025; 85379; 93005; 96360; 96361; G0378; Q9966

== ENCOUNTER 2018-12-16 13:31 | Outpatient (CLI) | payer BC ==
--- NOTE | 2018-12-16 14:16 | MMO ---
Bilateral MAMMO Bilat Diag DDI+ARRON. CLINICAL HISTORY: Patient is 63 years old and is seen for diagnostic exam and lump or thickening in both breasts. The patient has the following family history of breast cancer: mother, malignant (generic), OVARIAN. The patient has no personal history of cancer. The patient has a history of left needle biopsy more than 10 years ago - benign and right Excisional Biopsy more than 10 years ago - RIGHT BREAST LACERATION REPAIR. VIEWS: The views performed were: bilateral craniocaudal with tomosynthesis; bilateral mediolateral oblique with tomosynthesis; and bilateral mediolateral with tomosynthesis. This study has been interpreted with the assistance of computer-aided detection. MAMMOGRAM FINDINGS: There are scattered fibroglandular densities. Finding 1: There is a post-surgical scar seen in the right breast. Finding 2: There are benign appearing calcifications with diffuse/scattered distribution seen in both breasts. IMPRESSION: NO MAMMOGRAPHIC EVIDENCE FOR MALIGNANCY. ANY DECISION TO BIOPSY SHOULD BE BASED ON CLINICAL ASSESSMENT. THE RESULTS OF THIS EXAM WERE SENT TO THE PATIENT. ACR BI-RADS Category 2 - Benign finding MAMMOGRAPHY NOTE: 1. A negative mammogram report should not delay a biopsy if a dominant of clinically suspicious mass is present. 2. Approximately 10% to 15% of breast cancers are not detected by mammography. 3. Adenosis and dense breasts may obscure an underlying neoplasm. Reported by: PAVITHRA MADSEN MD Electonically Signed: [id number]
== END 2018-12-16 13:32 | disposition home or self-care (01) ==
LOC: BICMAMMO 13:31
PROVIDERS: ATTEND Internal Medicine
DX: N63.0 Unspecified lump in unspecified breast (principal)
CPT/HCPCS: 77066; G0279

== ENCOUNTER 2019-08-30 08:12 | Outpatient (CLI) | payer BC ==
[2019-08-30 09:14] LABS: Estimated GFR-MDRD - POC Greater than 90
--- NOTE | 2019-08-30 11:20 | MRI ---
EXAM: MRI of the breasts without and with contrast HISTORY: Bilateral breast hardening for 20 years without pain or symptoms; breast mass in a male krystin ent COMPARISON: None TECHNIQUE: Multiplanar multisequence MR images were obtained of the breasts without and with IV contr ast. 3-D MIP reformats and contrast enhancement curves were generated on a [employer] workstation. FINDINGS: The patient has fairly large pendulous fat signal intensity along both chest chapman. There is bilatera l abnormal enhancing tissue extending from the nipples into this fatty tissue. This is more prominent along the inferior aspect. The right nipple appears to be pulled inferiorly. This demonstra rachell diffuse nonmass-like enhancement. No high T2 signal is seen in the location of any of these abnormal areas of enhancement and soft tissue signal intensity. No suspicious focal enhancement or ma ss is seen. No axillary adenopathy is seen. No internal mammary lymph nodes are identified. The visualized liver is unremarkable. The visualized bones are unremarkable. IMPRESSION: Nonspecific enhancing tissue within the bilateral chest wall/breast tissue. This does not appear mass like and most likely does not represent malignancy. This could represent granulomatous mastitis.
== END 2019-08-30 08:13 | disposition home or self-care (01) ==
LOC: BICMRI 08:12
PROVIDERS: ATTEND Surgery
DX: N63.0 Unspecified lump in unspecified breast (principal)
CPT/HCPCS: 82565; A9577; C8908

== ENCOUNTER 2020-01-12 07:22 | Outpatient (CLI) | payer BC ==
[2020-01-12 08:00] LABS: Estimated GFR-MDRD - POC Greater than 90
--- NOTE | 2020-01-12 08:47 | CT ---
CTA CHEST WITH CONTRAST: Axial tomograms were obtained through the chest with IV enhancement following an angio protocol with multiplanar reconstruction and 3D post processing. INDICATION: Thoracic aortic aneurysm. COMPARISON: Correlation is made to CTA chest 11/16/2018. FINDINGS: Thoracic aorta is well opacified. There is mild aneurysmal dilatation of the ascending thoracic aort a with diameter measured at 4.5 cm. This is stable when compared to 11/16/2018. There is no evidence of dissection. The Diameter at the sinus of Valsalva is measured at 3.8 cm which is upper normal for a male patient. The sinotubular diameter measured at 3.1 cm which is within normal range. Proximal descending thoracic aorta measured at 2.8 cm, mildly prominent. The lower thoracic descending aorta measured 2.4 cm, also upper normal. Mid abdominal aorta measures 2.1 cm with atherosclerotic changes. Lumen is irregular in the abdomina l aorta due to the peripheral thrombus. Pulmonary arteries are opacified and there is no evidence of pulmonary embolus. The lung moy are clear. No evidence of infiltrate or effusion. Mediastinum is unremarkable with no evidence of adenopathy. Upper abdomen unremarkable. Review of soft tissues shows plate-like calcification in the subareolar region of the left breast. T here is plate-like calcification along with anterior chest wall beneath the right breast and there ar e increased parenchymal opacities within the right breast. Breasts are prominent for a male patient. Recommend clinical correlation. IMPRESSION: 1. Mild aneurysmal dilatation of the ascending thoracic aorta as described above. 2. Scattered parenchymal opacities in both breasts with plate-like calcifications seen as described above. Recommend clinical correlation and examination of breasts. POS: CASH
[2020-01-12] MEDS ORDERED: Iopamidol 370 76% 100 ML VIAL ONE (14:16)
== END 2020-01-12 07:23 | disposition home or self-care (01) ==
LOC: BICCT 07:22
PROVIDERS: ATTEND Internal Medicine Cardiovascular Disease
DX: I77.810 Thoracic aortic ectasia (principal); I71.2 Thoracic aortic aneurysm, without rupture; N64.89 Other specified disorders of breast
CPT/HCPCS: 71275; 82565; Q9967

== ENCOUNTER 2020-05-17 07:54 | Outpatient (CLI) | payer BC | END 2020-05-17 07:55 | disposition home or self-care (01) | LOC: TBSIIMAG 07:54 | PROVIDERS: ATTEND Surgery | DX: M47.26 Other spondylosis with radiculopathy, lumbar region (principal); Z98.890 Other specified postprocedural states | CPT/HCPCS: 72100; 72148 ==

== ENCOUNTER 2020-07-07 06:54 | Outpatient (CLI) | payer BC | END 2020-07-07 06:55 | disposition home or self-care (01) | LOC: BICULT 06:54 | PROVIDERS: ATTEND Internal Medicine Gastroenterology | DX: R94.5 Abnormal results of liver function studies (principal) | CPT/HCPCS: 76705 ==

== ENCOUNTER 2020-12-11 12:54 | Outpatient (CLI) | payer BC | END 2020-12-11 12:55 | disposition home or self-care (01) | LOC: BICRAD 12:54 | PROVIDERS: ATTEND Internal Medicine | DX: M25.551 Pain in right hip (principal); M79.645 Pain in left finger(s); M89.8X1 Other specified disorders of bone, shoulder; M25.511 Pain in right shoulder ==

== ENCOUNTER 2020-12-22 10:26 | Outpatient (CLI) | payer BC | END 2020-12-22 10:27 | disposition home or self-care (01) | LOC: BICMRI 10:26 | PROVIDERS: ATTEND Internal Medicine | DX: M25.511 Pain in right shoulder (principal); M19.011 Primary osteoarthritis, right shoulder ==

== ENCOUNTER 2021-01-12 07:58 | Outpatient (CLI) | payer BC ==
[2021-01-12 08:33] LABS: Estimated GFR-MDRD - POC Greater than 90
[2021-01-12] MEDS ORDERED: Iopamidol-370 76% 500 ML 1 ML ONE (12:13)
== END 2021-01-12 07:59 | disposition home or self-care (01) ==
LOC: BICCT 07:58
PROVIDERS: ATTEND Internal Medicine Cardiovascular Disease
DX: I77.810 Thoracic aortic ectasia (principal); Z98.890 Other specified postprocedural states
CPT/HCPCS: 71275; 82565; Q9967

== ENCOUNTER 2022-03-04 09:09 | Outpatient (CLI) | payer BC | END 2022-03-04 09:10 | disposition home or self-care (01) | LOC: BICULT 09:09 | PROVIDERS: ATTEND Internal Medicine | DX: M25.562 Pain in left knee (principal); R22.1 Localized swelling, mass and lump, neck; E04.1 Nontoxic single thyroid nodule | CPT/HCPCS: 76536 ==

== ENCOUNTER 2024-02-25 14:43 | Outpatient (CLI) | payer BC | END 2024-02-25 14:44 | disposition home or self-care (01) | LOC: BICULT 14:43 | PROVIDERS: ATTEND Internal Medicine | DX: E04.1 Nontoxic single thyroid nodule (principal) | CPT/HCPCS: 76536 ==

== ENCOUNTER 2025-01-05 08:04 | Outpatient (CLI) | payer BC ==
[2025-01-05 08:57] LABS: Estimated GFR - POC 92.0
== END 2025-01-05 08:05 | disposition home or self-care (01) ==
LOC: CT 08:04
PROVIDERS: ATTEND Internal Medicine Cardiovascular Disease
DX: I77.810 Thoracic aortic ectasia (principal); J98.11 Atelectasis; I31.39 Other pericardial effusion (noninflammatory); E04.1 Nontoxic single thyroid nodule; I25.10 Atherosclerotic heart disease of native coronary artery without angina pectoris; M47.814 Spondylosis without myelopathy or radiculopathy, thoracic region; K76.89 Other specified diseases of liver; D73.89 Other diseases of spleen; N28.1 Cyst of kidney, acquired; I70.0 Atherosclerosis of aorta; K57.30 Diverticulosis of large intestine without perforation or abscess without bleeding; Z90.49 Acquired absence of other specified parts of digestive tract; Z98.890 Other specified postprocedural states
CPT/HCPCS: 36415; 71260; 82565